=== PATIENT | male | born 1960 | race Caucasian/White ===

== ENCOUNTER 2022-12-13 20:25 | Inpatient (IN) | payer BC ==
[~2022-12-13] VITALS: Ht 182.9 cm; Wt 100.0 kg
[~2022-12-13 20:25] MED LIST: Flomax0.4 MG PO; HYDMOR2 PO; Percocet 5-3251 EACH PO
[2022-12-13 21:01] LABS: BASOPHILS ABSOLUTE AUTO 0.03 K/mm3 (0.00-0.23); BASOPHILS PERCENT AUTO 0 % (0-2); EOSINOPHILS PERCENT AUTO 0 % (0-6); Hematocrit 41.4 % (37.0-53.0); Hemoglobin 13.8 g/dL (13.5-17.5); IMMATURE GRAN ABSOLUTE AUTO 0.09 K/mm3 (0.00-0.10); IMMATURE GRAN PERCENT AUTO 1 % (0-1); LYMPHOCYTES ABSOLUTE AUTO 1.46 K/mm3 (0.84-5.20); LYMPHOCYTES PERCENT AUTO 8 % (21-46); MONOCYTES PERCENT AUTO 5 % (4-13); Mean Corpuscular HGB 28.5 pg (26.0-34.0); Mean Corpuscular HGB Conc 33.3 g/dL (31.5-36.5); Mean Corpuscular Volume 86 fL (80-100); Mean Platelet Volume 9.1 fL (9.1-12.4); NEUTROPHILS ABSOLUTE AUTO 16.81 K/mm3 (1.96-9.15); NEUTROPHILS PERCENT AUTO 87 % (41-73); Platelet Count 245 K/mm3 (150-400); RDW Coefficient Variation 12.7 % (11.7-14.2); RDW Standard Deviation 39.2 fL (35.1-46.3); Red Blood Cell Count 4.84 M/mm3 (4.30-5.90); White Blood Cell Count 19.39 K/mm3 (4.00-11.30)
[2022-12-13 21:12] LABS: Source, Urine Clean Catch
[2022-12-13 21:15] LABS: Appearance, Urine Cloudy (Clear); Bilirubin, Urine Neg (Neg); Blood, Urine 5+ (Neg); Color, Urine Yellow (P-Yellow); Glucose Qualitative, Urine Neg (Neg); Ketones, Urine Neg (Neg); Leukocyte Esterase, Urine 3+ (Neg); Nitrite, Urine Pos (Neg); Protein, Urine 3+ (Neg); Urobilinogen, Urine NORM (Normal); pH, Urine 6.5 (5.0-8.0)
[2022-12-13 21:21] LABS: Bacteria Many /hpf; Squamous Epithelial Cells Not Seen /hpf (Few); White Blood Cells, Urine TNTC /hpf (0-5)
[2022-12-13 21:24] LABS: Albumin, Blood 3.7 g/dL (3.4-5.0); Bilirubin, Total 0.7 mg/dL (0.1-1.0); Bun/Creatinine Ratio 13.1 (12.0-20.0); Calcium, Blood 8.9 mg/dL (8.5-10.1); Creatinine, Blood 1.37 mg/dL (0.60-1.20); Globulin, Blood 3.6 g/dL (2.2-4.0); Potassium, Blood 3.9 mmol/L (3.5-5.5); Total Protein, Blood 7.3 g/dL (6.4-8.2)
[2022-12-14 07:55] VITALS: BP 147/76
[2022-12-14 16:07] VITALS: BP 158/87
--- NOTE | 2022-12-14 18:13 | NUR ---
SHIFT SUMMARY: PT A&O X4. PLEASANT AND COOPERATIVE WITH CARE. INDEPENDENT IN ROOM. ON ROOM AIR TOLERATING WELL. PT C/O 8-01/26 PAIN THIS SHIFT. PT RECEVIED FENTANYL PER EMAR. PT STATED IT WORKED FOR "ABOUT 30 MINUTES." THEN HAD PAIN COME BACK TO 01/26 PAIN. PER PT, HAS CHRONIC KIDNEY STONES AND HAS ALREADY PASSED AROUND [address] THIS [address]ONE. [address]ED [address]. WELLINGTON REGARDING PAIN. D/C FENTANYL AND ADDED DILAUDID TO PT EMAR. PT RECEIVED ONE TIME DOSE OF 1MG/ML. PT WAS ABLE TO SLEEP FOR SEVERAL HOURS COMFORTABLY AFTER IV DILAUDID. PT RECEIVED 1,000ML NS AND CURRENTLY INFUSING LAST 500MLS PER ORDER. IV ABX IN PLACE. PT WALKED AROUND HALLS MANY TIMES THIS SHIFT. STATES WALKING HELPS TO DISTRACT FROM PAIN. AWAITING TRANSFER FOR UROLOGIST. CALL LIGHT IN REACH. BED IN LOWEST POSITION. WILL CONTINUE TO MONITOR.
[2022-12-14 20:51] VITALS: BP 146/75
[2022-12-15 04:45] VITALS: BP 144/83
[2022-12-15 05:14] LABS: BASOPHILS ABSOLUTE AUTO 0.02 K/mm3 (0.00-0.23); BASOPHILS PERCENT AUTO 0 % (0-2); EOSINOPHILS ABSOLUTE AUTO 0.11 K/mm3 (0.00-0.68); EOSINOPHILS PERCENT AUTO 1 % (0-6); Hematocrit 33.8 % (37.0-53.0); Hemoglobin 11.2 g/dL (13.5-17.5); IMMATURE GRAN ABSOLUTE AUTO 0.02 K/mm3 (0.00-0.10); IMMATURE GRAN PERCENT AUTO 0 % (0-1); LYMPHOCYTES ABSOLUTE AUTO 1.29 K/mm3 (0.84-5.20); LYMPHOCYTES PERCENT AUTO 16 % (21-46); MONOCYTES ABSOLUTE AUTO 0.85 K/mm3 (0.16-1.47); MONOCYTES PERCENT AUTO 11 % (4-13); Mean Corpuscular HGB 28.8 pg (26.0-34.0); Mean Corpuscular HGB Conc 33.1 g/dL (31.5-36.5); Mean Corpuscular Volume 87 fL (80-100); Mean Platelet Volume 9.4 fL (9.1-12.4); NEUTROPHILS ABSOLUTE AUTO 5.84 K/mm3 (1.96-9.15); NEUTROPHILS PERCENT AUTO 72 % (41-73); Platelet Count 183 K/mm3 (150-400); RDW Coefficient Variation 12.5 % (11.7-14.2); Red Blood Cell Count 3.89 M/mm3 (4.30-5.90); White Blood Cell Count 8.13 K/mm3 (4.00-11.30)
--- NOTE | 2022-12-15 05:27 | NUR ---
SHIFT SUMMARY ASSUMED CARE VSS, MINIMAL C/O PAIN WILL CALL IF NEEDING MEDICATION. PT UP IN [place] AMBULATING FEELING MUCH BETTER, NIGHT HAS BEEN VERY UNEVENTFUL, INDEPENDANT IN RM AND USING BATHROOM. STATES WE SHOULD GET A UA BECAUSE OF THE WAY HIS URINE LOOKS, I LEFT SPECIMEN CUP IN BATHROOM.
[2022-12-15 05:55] LABS: Albumin, Blood 2.8 g/dL (3.4-5.0); Albumin/Globulin Ratio 0.9 (0.8-1.8); Bilirubin, Total 0.6 mg/dL (0.1-1.0); Bun/Creatinine Ratio 12.2 (12.0-20.0); Calcium, Blood 8.1 mg/dL (8.5-10.1); Creatinine, Blood 1.39 mg/dL (0.60-1.20); Globulin, Blood 3.2 g/dL (2.2-4.0); Potassium, Blood 3.6 mmol/L (3.5-5.5)
[2022-12-15 07:27] VITALS: BP 126/75
[2022-12-15 15:44] VITALS: BP 138/70
--- NOTE | 2022-12-15 18:35 | NUR ---
SHIFT SUMMARY: PT A&O X4. PT PLEASANT AND COOPERATIVE WITH ALL CARE. NO ACUTE CHANGES WITH PT THIS SHIFT. PT RECEIVED PAIN MEDICATION PER EMAR THREE TIMES THIS SHIFT. PT STATES HIS PAIN INSTANTLY IN TOLERABLE AFTER PAIN MEDS. PT NOT ACTIVE THIS SHIFT. PT SLEPT FOR SEVERAL HOURS AFTER PAIN MEDS. IV ABX GIVEN PER EMAR. PATIENT WAITING FOR A BED TO OPEN AT [facility] IN [place]. FIRE IGNITION SOURCES DISCUSSED WITH PT DURING HOURLY ROUNDS BY THIS RN AND MORNING ROUNDS BY DETENTION DEPUTY. PT VERBALIZED UNDERSTANDING. CALL LIGHT IN REACH. WILL CONTINUE TO MONITOR.
[2022-12-15 19:43] VITALS: BP 152/87
[2022-12-16 02:58] VITALS: BP 158/96
--- NOTE | 2022-12-16 05:16 | NUR ---
SHIFT SUMMERY. PT RESTING IN BED. PT CALLING X 2 FOR PAIN MEDS DUE TO PAIN FROM KIDNEY STONES. PT SEEMED TO BE ALSEEP THE REST OF THE NIGHT. CALL LIGHT IN REACH. FIRE SAFETY REVIEWED.
[2022-12-16 07:39] VITALS: BP 146/84
[2022-12-16 15:57] VITALS: BP 144/75
--- NOTE | 2022-12-16 18:54 | NUR ---
pt doing ok, has been ambulating out in halls periodically, medicated for pain once, he was pain free with 0.5mg dilaudid, no further changes, continue waiting on a bed in [place]. call light in reach.
[2022-12-16 19:43] VITALS: BP 150/83
[2022-12-17 04:40] VITALS: BP 150/96
--- NOTE | 2022-12-17 06:10 | NUR ---
SHIFT SUMMERY. PT RESTING DURING NIGHT, PT ONLY REQUESTING PAIN MEDS X 1 SO FAR TONIGHT. FIRE SAFETY REVIEWED PT JIGAR. CALL LIGHT IN REACH.
[2022-12-17 06:12] LABS: Bun/Creatinine Ratio 10.4 (12.0-20.0); Calcium, Blood 8.5 mg/dL (8.5-10.1); Creatinine, Blood 1.34 mg/dL (0.60-1.20); Potassium, Blood 3.7 mmol/L (3.5-5.5)
[2022-12-17 08:06] VITALS: BP 150/82
--- NOTE | 2022-12-17 08:30 | NUR ---
pt needing pain meds this am, were given and effective, a/ox4, pleasant and cooperative with care, follows commands well, lungs are clear t/o, resp even and unlabored, no cough noted, hrr, no edema noted, ppp+2, cap refill <3 sec, vs stable afebrile, iv site to rfa clear and patent, btx4, abd flat soft reports bm this am, and is voiding, skin c/w/d, maew, up ad vincent out in halls, call light in reach.
[2022-12-17 15:15] VITALS: BP 138/79
[2022-12-17 16:36] VITALS: BP 138/79
--- NOTE | 2022-12-17 16:47 | NUR ---
Pt has a room at [facility], will be going via ground at 1700, pt informed, report given to Shazia HASTINGS, call light in reach.
--- NOTE | 2022-12-17 17:16 | NUR ---
Pt left for [employer] via [employer], has all belongings.
== END 2022-12-17 17:03 | disposition short-term general hospital (02) | DRG 694 ==
LOC: ER 20:25 → MEDS 12-14 05:02
PROVIDERS: Internal Medicine; Physician Assistant; ADMIT Internal Medicine
DX: N13.2 Hydronephrosis with renal and ureteral calculous obstruction (principal); N17.9 Acute kidney failure, unspecified; N39.0 Urinary tract infection, site not specified; Z79.891 Long term (current) use of opiate analgesic; Z79.899 Other long term (current) drug therapy; Z87.442 Personal history of urinary calculi
CPT/HCPCS: 36415; 74176; 80048; 80053; 81001; 83605; 83880; 85025; 87077; 87086; 87186; 96361; 96365; 96366; 96375; 96376; 99285-25; A9270; G0378; J0696; J1170; J1885; J3010; J7030; J7050

== ENCOUNTER → 2023-01-06 | Outpatient (CLI) | payer BC | LOC: LAB 07:40 → LAB SHORT 07:40 → LAB FUT 12-25 14:15 | DX: N20.1 Calculus of ureter (principal) | CPT/HCPCS: 87086 ==

== ENCOUNTER → 2023-04-02 | Outpatient (CLI) | payer BC | LOC: LAB 08:18 → LAB SHORT 08:18 → EDSTATUS 03-19 11:35 → LAB FUT 03-19 11:35 | DX: N20.0 Calculus of kidney (principal) | CPT/HCPCS: 87086 ==

== ENCOUNTER 2024-09-21 13:33 | Emergency (ER) | payer OTHER ==
[~2024-09-21] VITALS: Ht 182.9 cm; Wt 99.8 kg
[2024-09-21] MEDS ORDERED: NS 1,000 ML IV SCH (13:55)
[2024-09-21] MEDS ORDERED: Ondansetron HCl 2 MG / ML 2ML Vial IV ONE (13:55)
[2024-09-21] MEDS ORDERED: Ketorolac Tromethamine 30mg Vial IV ONE (13:55)
[2024-09-21 14:32] LABS: BASOPHILS ABSOLUTE AUTO 0.04 K/mm3 (0.00-0.23); BASOPHILS PERCENT AUTO 0 % (0-2); EOSINOPHILS ABSOLUTE AUTO 0.21 K/mm3 (0.00-0.68); EOSINOPHILS PERCENT AUTO 2 % (0-6); Hematocrit 43.3 % (37.0-53.0); Hemoglobin 14.9 g/dL (13.5-17.5); IMMATURE GRAN ABSOLUTE AUTO 0.03 K/mm3 (0.00-0.10); IMMATURE GRAN PERCENT AUTO 0 % (0-1); LYMPHOCYTES ABSOLUTE AUTO 1.66 K/mm3 (0.84-5.20); LYMPHOCYTES PERCENT AUTO 16 % (21-46); MONOCYTES PERCENT AUTO 7 % (4-13); Mean Corpuscular HGB 29.5 pg (26.0-34.0); Mean Corpuscular HGB Conc 34.4 g/dL (31.5-36.5); Mean Corpuscular Volume 86 fL (80-100); Mean Platelet Volume 9.2 fL (9.1-12.4); NEUTROPHILS PERCENT AUTO 74 % (41-73); Platelet Count 257 K/mm3 (150-400); RDW Standard Deviation 40.4 fL (35.1-46.3); Red Blood Cell Count 5.05 M/mm3 (4.30-5.90); White Blood Cell Count 10.34 K/mm3 (4.00-11.30)
[2024-09-21 15:12] LABS: Source, Urine Clean Catch
[2024-09-21 15:12] LABS: Albumin, Blood 3.7 g/dL (3.4-5.0); Albumin/Globulin Ratio 1.1 (0.8-1.8); Bilirubin, Total 0.2 mg/dL (0.1-1.0); Bun/Creatinine Ratio 9.5 (12.0-20.0); Calcium, Blood 9.1 mg/dL (8.5-10.1); Creatinine, Blood 1.68 mg/dL (0.60-1.20); Globulin, Blood 3.3 g/dL (2.2-4.0); Potassium, Blood 3.9 mmol/L (3.5-5.5)
[2024-09-21 15:19] LABS: Appearance, Urine Hazy (Clear); Bilirubin, Urine Neg (Neg); Blood, Urine 5+ (Neg); Color, Urine Amber (P-Yellow); Glucose Qualitative, Urine Neg (Neg); Ketones, Urine Neg (Neg); Leukocyte Esterase, Urine 1+ (Neg); Nitrite, Urine Neg (Neg); Protein, Urine 2+ (Neg); Specific Gravity, Urine 1.025 (1.003-1.022); Urobilinogen, Urine NORM (Normal)
[2024-09-21 15:36] LABS: Bacteria Few /hpf; Squamous Epithelial Cells Rare /hpf (Few)
[2024-09-21 15:37] LABS: Mucus Light (0-Heavy)
[2024-09-21 15:41] VITALS: BP 162/97
[2024-09-21] MEDS ORDERED: Flomax0.4 MG PO (16:04)
[2024-09-21] MEDS ORDERED: Percocet 5-3251 EACH PO (16:04)
== END 2024-09-21 16:08 | disposition home or self-care (01) ==
LOC: ER 13:33
PROVIDERS: Physician Assistant
DX: N13.2 Hydronephrosis with renal and ureteral calculous obstruction (principal); Z79.899 Other long term (current) drug therapy
CPT/HCPCS: 74177; 80053; 81001; 83690; 85025; 87086; 96374-59; 96375; 99284-25; J1885; J2405; J7030; Q9967